=== PATIENT | female | born 1990 | race Caucasian/White ===

== ENCOUNTER 2017-08-05 14:06 | Emergency (ER) | payer OTHER ==
[~2017-08-05] VITALS: Ht 170.2 cm; Wt 13.6 kg
[2017-08-05 14:12] VITALS: BP 124/76
[2017-08-05 14:58] LABS: BASOPHILS % (AUTO) 0.7 % (0-1); EOSINOPHILS # (AUTO) 0.2 X10'3 (0-0.9); HEMATOCRIT 39.4 % (35.0-45.0); HEMOGLOBIN 13.5 g/dl (12.0-16.0); LYMPHOCYTES # (AUTO) 1.9 X10'3 (1.1-4.8); LYMPHOCYTES % (AUTO) 36.1 % (21-51); MEAN CORPUSCULAR HEMOGLOBIN 30.9 PG (27.0-31.0); MEAN CORPUSCULAR HGB CONC 34.3 % (33.0-36.5); MEAN PLATELET VOLUME 8.9 FL (7.4-10.4); MONOCYTES # (AUTO) 0.3 X10'3 (0-0.9); NEUTROPHILS # (AUTO) 2.9 X10'3 (1.8-7.7); NEUTROPHILS % (AUTO) 55.2 % (42-75); PLATELET COUNT 195 X10'3 (140-440); RED BLOOD COUNT 4.37 X10'6 (4.20-5.60); RED CELL DISTRIBUTION WIDTH 12.7 % (11.5-14.5); WHITE BLOOD COUNT 5.3 X10'3 (4.5-11.0)
[2017-08-05 15:03] LABS: URINE HCG NEGATIVE (NEG)
[2017-08-05 15:07] LABS: ALBUMIN 4.2 G/DL (3.4-5.0); ANION GAP 9 (8-16); BLOOD UREA NITROGEN 11 MG/DL (7-18); BUN/CREATININE RATIO 13.9 (6.6-38.0); CALCIUM 9.3 MG/DL (8.5-10.1); CHLORIDE 107 MMOL/L (99-107); CREATININE 0.79 MG/DL (0.40-0.90); GLUCOSE 82 MG/DL (70-104); POTASSIUM 3.8 MMOL/L (3.5-5.1); PROTHROMBIN TIME 10.3 SECONDS (9.0-12.0); SODIUM 142 MMOL/L (135-145); TOTAL CARBON DIOXIDE 26.5 MMOL/L (24-32); eGFR 89 ML/MIN
[2017-08-05 15:08] LABS: CLARITY,URINE CLEAR (Clear); COLOR,URINE STRAW (Yellow); GLUCOSE, URINE NEGATIVE (Neg); KETONES,URINE NEGATIVE (Neg); LEUKOCYTE ESTERASE ,URINE SMALL (Neg); NITRITES, URINE NEGATIVE (Neg); OCCULT BLOOD,URINE NEGATIVE (Neg); PH,URINE 6.5 (4.8-8.0); PROTEIN,URINE NEGATIVE (Neg); UA COLLECTION TYPE CLN CATCH MIDSTREAM; UROBILINOGEN,URINE 0.2 E.U/dL (0.2-1.0)
[2017-08-05 15:14] LABS: SQUAMOUS EPITHELIAL CELL,UR FEW /LPF (FEW)
[2017-08-05 15:15] LABS: BACTERIA,URINE FEW /HPF (Neg); RBC,URINE 0-2 /HPF (0-2); WBC,URINE 0-4 /HPF (0-4)
[2017-08-05 15:23] LABS: MONOTEST NEGATIVE (Neg)
== END 2017-08-05 15:50 | disposition home or self-care (01) ==
LOC: ER 14:08 → EEVIPCON 14:08 → ER 15:50
DX: S00.83XA Contusion of other part of head, initial encounter (principal); X58.XXXA Exposure to other specified factors, initial encounter; Y93.89 Activity, other specified; Y92.89 Other specified places as the place of occurrence of the external cause; Y99.8 Other external cause status
CPT/HCPCS: 36415; 80048; 81001; 81025; 85025; 85610; 86308; 87077; 87088; 87186; 99284

== ENCOUNTER 2017-08-17 09:50 | Outpatient (CLI) | payer OTHER ==
[2017-08-17 10:39] LABS: CLARITY,URINE CLEAR (Clear); COLOR,URINE YELLOW (Yellow); GLUCOSE, URINE NEGATIVE (Neg); KETONES,URINE NEGATIVE (Neg); LEUKOCYTE ESTERASE ,URINE NEGATIVE (Neg); NITRITES, URINE NEGATIVE (Neg); OCCULT BLOOD,URINE NEGATIVE (Neg); PH,URINE 7.5 (4.8-8.0); PROTEIN,URINE NEGATIVE (Neg)
[2017-08-17 10:40] LABS: UA COLLECTION TYPE CLN CATCH MIDSTREAM
[2017-08-17 11:00] LABS: CHOL/HDL RATIO 2.2 (0.00-4.99); CHOLESTEROL 165 MG/DL (0-200); HDL CHOLESTEROL 76 MG/DL (35-60); LDL CHOLESTEROL 78 MG/DL (50-100); TRIGLYCERIDES 83 MG/DL (20-135)
== END 2017-08-17 23:59 | disposition home or self-care (01) ==
LOC: LAB 09:50
PROVIDERS: ATTEND Family Medicine
DX: Z00.01 Encounter for general adult medical examination with abnormal findings (principal); R53.83 Other fatigue; R79.89 Other specified abnormal findings of blood chemistry
CPT/HCPCS: 36415; 80061; 81003; 84436; 84443

== ENCOUNTER 2019-05-08 17:10 | Emergency (ER) | payer OTHER ==
[~2019-05-08] VITALS: Ht 168.9 cm; Wt 63.3 kg
[2019-05-08 18:02] LABS: BASOPHILS # (AUTO) 0.1 X10'3 (0-0.2); BASOPHILS % (AUTO) 0.6 % (0-1); EOSINOPHILS % (AUTO) 0.2 % (0-6); MEAN CORPUSCULAR HEMOGLOBIN 29.9 PG (27.0-31.0); RED CELL DISTRIBUTION WIDTH 13.2 % (11.5-14.5)
[2019-05-08 18:03] LABS: HEMATOCRIT 37.7 % (35.0-45.0); LYMPHOCYTES # (AUTO) 9.2 X10'3 (1.1-4.8); LYMPHOCYTES % (AUTO) 79.7 % (21-51); MEAN CORPUSCULAR HGB CONC 34.4 g/dL (33.0-36.5); MEAN CORPUSCULAR VOLUME 87.1 FL (78-98); MEAN PLATELET VOLUME 9.2 FL (7.4-10.4); MONOCYTES # (AUTO) 0.5 X10'3 (0-0.9); MONOCYTES % (AUTO) 4.6 % (2-12); NEUTROPHILS # (AUTO) 1.7 X10'3 (1.8-7.7); NEUTROPHILS % (AUTO) 14.9 % (42-75); PLATELET COUNT 159 X10'3 (140-440); RED BLOOD COUNT 4.33 X10'6 (4.20-5.60); WHITE BLOOD COUNT 11.5 X10'3 (4.5-11.0)
[2019-05-08 18:27] LABS: ALANINE AMINOTRANSFERASE 226 U/L (12-78); ALBUMIN 3.7 G/DL (3.4-5.0); ALBUMIN/GLOBULIN RATIO 1.1 (1.1-1.5); ALKALINE PHOSPHATASE 177 IU/L (46-116); ANION GAP 9 (8-16); ASPARTATE AMINO TRANSFERASE 197 U/L (10-37); BILIRUBIN,TOTAL 0.9 MG/DL (0.1-1.0); BLOOD UREA NITROGEN 7 MG/DL (7-18); BUN/CREATININE RATIO 8.9 (6.6-38.0); CALCIUM 9.1 MG/DL (8.5-10.1); CHLORIDE 104 MMOL/L (99-107); CREATININE 0.79 MG/DL (0.40-0.90); GLUCOSE 95 MG/DL (70-104); POTASSIUM 4.2 MMOL/L (3.5-5.1); SODIUM 139 MMOL/L (135-145); TOTAL CARBON DIOXIDE 26.3 MMOL/L (24-32); TOTAL PROTEIN 7.1 G/DL (6.4-8.2); eGFR 88 ML/MIN
[2019-05-08 18:29] LABS: PLATELET ESTIMATE NORMAL; TOTAL CELLS COUNTED 100
[2019-05-08] MEDS ORDERED: ketorolac trometh. 30mg/ml inj. IM ONE (20:00)
[2019-05-08] MEDS ORDERED: LIDOcaine/PRILOcaine 5gm cream TP ONE (21:45)
[2019-05-08 21:46] VITALS: BP 110/68
== END 2019-05-08 21:47 | disposition home or self-care (01) ==
LOC: ER 17:11
DX: B34.9 Viral infection, unspecified (principal); R50.9 Fever, unspecified; R51 Headache; M54.2 Cervicalgia; R05 Cough
CPT/HCPCS: 36415; 71045; 80053; 83605; 84145; 85025; 87040; 87502; 87503; 96372; 99284; J1885

== ENCOUNTER 2019-05-13 11:07 | Outpatient (CLI) | payer OTHER ==
[2019-05-13 12:05] LABS: ALANINE AMINOTRANSFERASE 548 U/L (12-78); ALBUMIN 3.7 G/DL (3.4-5.0); ALKALINE PHOSPHATASE 217 IU/L (46-116); ANION GAP 4 (8-16); ASPARTATE AMINO TRANSFERASE 448 U/L (10-37); BILIRUBIN,TOTAL 0.7 MG/DL (0.1-1.0); BLOOD UREA NITROGEN 11 MG/DL (7-18); BUN/CREATININE RATIO 13.3 (6.6-38.0); CHLORIDE 106 MMOL/L (99-107); CREATININE 0.83 MG/DL (0.40-0.90); GLUCOSE 83 MG/DL (70-104); POTASSIUM 4.3 MMOL/L (3.5-5.1); SODIUM 140 MMOL/L (135-145); TOTAL CARBON DIOXIDE 30.5 MMOL/L (24-32); TOTAL PROTEIN 7.5 G/DL (6.4-8.2); eGFR 83 ML/MIN
[2019-05-16 14:10] LABS: EBV AB VCA, IGM SEE COMMENTS
[2019-05-16 14:15] LABS: EBV AB VCA, IGG SEE COMMENTS
[2019-05-16 14:17] LABS: EBV NUCLEAR ANTIGEN AB, IGG SEE COMMENTS
== END 2019-05-13 23:59 | disposition home or self-care (01) ==
LOC: LAB 11:07
PROVIDERS: ATTEND Family Medicine
DX: R13.10 Dysphagia, unspecified (principal)
CPT/HCPCS: 36415; 80053; 85610; 86663; 86664; 86665